=== PATIENT | male | born 1970 | race Caucasian/White ===

== ENCOUNTER 2016-03-14 17:34 | Outpatient (CLI) | payer BC ==
[2016-03-14 20:24] LABS: ALT (SGPT) 68 U/L (0-55); AST (SGOT) 29 U/L (5-34); Alkaline Phosphatase 62 U/L (40-150); Anion Gap 14 mmol/L (10-20); BUN (Urea Nitrogen) 23 mg/dL (8.9-20.6); Bilirubin, Total 0.7 mg/dL (0.2-1.2); Calc. Creatinine Clearance 0 mL/min (70-130); Calcium 9.6 mg/dL (7.8-10.44); Carbon Dioxide 25 mmol/L (22-29); Chloride 105 mmol/L (98-107); Estimated GFR-MDRD 78; Protein, Total 7.4 g/dL (6.0-8.3)
== END 2016-03-14 17:35 | disposition home or self-care (01) ==
LOC: NAV SJFMSP 17:34
PROVIDERS: ATTEND Family Medicine
DX: R19.7 Diarrhea, unspecified (principal)
CPT/HCPCS: 80053; 85025

== ENCOUNTER 2016-03-15 08:14 | Outpatient (CLI) | payer BC | END 2016-03-15 08:15 | disposition home or self-care (01) | LOC: NAV LABSP 08:14 | PROVIDERS: ATTEND Family Medicine | DX: R19.7 Diarrhea, unspecified (principal) | CPT/HCPCS: 83630; 87015; 87045; 87046; 87177; 87206; 87449; 87899 ==

== ENCOUNTER 2016-03-17 16:37 | Outpatient (CLI) | payer BC ==
[2016-03-17 16:58] LABS: #Basophils 0.2 thou/uL (0.0-0.2); #Eosinphils 0.3 thou/uL (0.0-0.7); #Lymphocytes 3.2 thou/uL (1.20-3.40); #Monocytes 0.8 thou/uL (0.11-0.59); #Neutrophils 5.9 thou/uL (1.40-6.50); %Eosinophils 2.6 % (0.0-10.0); %Lymphocytes 30.6 % (21.0-51.0); %Monocytes 7.5 % (0.0-10.0); Hematocrit 45.9 % (42.0-52.0); Mean Platelet Volume 6.6 fL (7.4-10.4); Red Blood Cell (RBC) Count 5.03 mill/uL (4.70-6.10); White Blood Cell (WBC) Count 10.3 thou/uL (4.8-10.8)
== END 2016-03-17 16:38 | disposition home or self-care (01) ==
LOC: NAV LABSP 16:37
PROVIDERS: ATTEND Family Medicine
DX: R19.7 Diarrhea, unspecified (principal)
CPT/HCPCS: 85025